=== PATIENT | male | born 1935 | race Caucasian/White ===

== ENCOUNTER → 2016-09-28 | Outpatient (CLI) | payer MEDICARE ==
[2015-05-06 10:12] VITALS: BP 123/56
[~2016-09-28] MED LIST: ALLO300T PO; ASPI-482 PO; CARV3.122 PO; CHOL20003 PO; FURO20TA3 PO; GUAR1PAC2 PO; LISI2.5T PO; OMEG1CAP28 PO; POLY17PO5 PO; REGADENOSON 0.4 MG/5 ML DISP.SYRIN. IV ONE; SIMV80TA3 PO
--- NOTE | 2016-09-28 15:32 | RAD ---
APPROVED REPORT Test Type: Pharmacological Stress Nurse/Tech: Misa Kuo R.N. Test Indications: cad Cardiac History: htn, cad, pacemaker Medications: see ehr Medical History: see ehr Resting ECG: sr Resting Heart Rate: 83 bpm Resting Blood Pressure: 141/70mmHg Pretest Chest Pain: No chest pain Nurse/Tech Notes lungs cta, heart tones regular, good radial pulse Consent: The procedure was explained to the patient in lay terms. Informed consent was witnessed. Antonio eout was entered into [employer]. History and Stress Test performed by Misa Kuo R.N. Pharm. Details Pharmacologic stress testing was performed using 0.4mg per 5ml of regadenoson given intravenously ove r 7-10 seconds. Stress Symptoms No chest pain or symptoms. POST EXERCISE Reason for Termination: Infusion complete Max HR: 89 bpm Max Blood Pressure: 140/76mmHg Chest Pain: No. Arrhythmia: No. ST Change: No. INTERPRETATION Stress EKG Conclusion: Baseline EKG showed sinus rhythm. No ischemic changes at peak stress. No arr hythmias. Imaging Protocol IMAGE PROTOCOL: Rest Tc-99m/stress Tc-99m 1 day Rest: Stress: Viability: Radiopharm.Tc99m PclanhircCo23z Sestamibi Rcjf77dLc 33.1mCi Img Date 09/28/2016 09/28/2016 Inj-Img Xyuo66let. 60min. Rest Admin Site:IV - Left AntecubitalAdministrator:RT Elaina (R)(N) Stress Admin Site: IV - Left AntecubitalAdministrator: RT Elaina (R)(N) STRESS DATA End Diast. Vol.61.0mlAv. Heart Rate89.0bpm End Syst. Vol.19.0mlCO Index BSA0.0L/min Myocardial Kyva536.0gEject. Syiqezhb01.0% Stress Rates Pk. Fill Rate3.58EDV/secLVtime Pk. Fill 162.26msec Pk. Empty Rate4.44ESV/secLVtime Pk. Vxtyj434.27msec 06/21 Pk. Fill0.01EDV/sec Stress Scores Regional WT2.00Summed WT21.00 Regional WM0.00Summed WM6.00 Study quality was good. Left Ventricular size was Normal at Rest and Stress. Lung uptake was Normal. Left Ventricular ejection fraction is 69%. LV Perfusion Stress scintigraphic images showed small fixed defect involving the anteroapical wall consistent with previous myocardial infarction without any significant reversibility. Wall Motion Normal regional wall motion. LV Perf. Quant 17 Seg. SSS2.00 17 Seg. SRS2.00 17 Seg. SDS2.00 Stress Defect Extent (% LAD)3.10Rest Defect Extent (% LAD)13.10Rev. Defect Extent (% LAD)0.00 Stress Defect Extent (% LCX) 10.00Rest Defect Extent (% LCX)0.00Rev. Defect Extent (% LCX)8.80 Stress Defect Extent (% RCA)0.00Rest Defect Extent (% RCA)0.00Rev. Defect Extent (% RCA)0.00 Stress Defect Extent (% SIGRID)2.80Rest Defect Extent (% SIGRID)4.60Rev. Defect Extent (% SIGRID)1.50 Conclusion 1. Regadenoson cardioisotope stress test showed small anteroapical wall infarct without any significa nt ischemia. 2. Normal left ventricular systolic function with ejection fraction calculated at 69%. 3. Low risk for cardiac events.
== END | disposition home or self-care (01) ==
LOC: NM 08:19
PROVIDERS: ATTEND Internal Medicine Cardiovascular Disease
DX: I25.10 Atherosclerotic heart disease of native coronary artery without angina pectoris (principal)
CPT/HCPCS: 78452; 93017; 96374; 96375; 96376; A9500; J2785

== ENCOUNTER → 2016-11-02 | Outpatient (CLI) | payer MEDICARE ==
[2015-05-06 10:12] VITALS: BP 123/56
[~2016-11-02] MED LIST changes: +CONTRAST GIVEN MC PRN; +IOHEXOL 240 MG/ML 50ML VIAL. PO ONE; +IOHEXOL 300 MG/ML 75 ML VIAL IV ONE; +POLY17PO29 PO; -POLY17PO5 PO; -REGADENOSON 0.4 MG/5 ML DISP.SYRIN. IV ONE
--- NOTE | 2016-11-02 10:30 | RAD ---
Examination: CT of the chest abdomen pelvis with IV contrast History: History of follow-up of rectal cancer Comparison: 10/19/2015 Technique: Axial CT images of the chest abdomen is performed with IV contrast. Coronal and sagittal reformats are performed PQRS Compliance Statement: One or more of the following individualized dose reduction techniques were utilized for this examination: 1. Automated exposure control 2. Adjustment of the mA and/or kV according to patient size 3. Use of iterative reconstruction technique Findings: The visualized thyroid gland grossly appears unremarkable. The central airways are patent. Diffuse coronary artery calcifications identified. The heart size grossly appears unremarkable. There is a 7 mm nodule identified in the right upper lobe of the lung grossly similar to prior exam. Linear bibasal lung airspace opacity likely atelectasis and scarring changes are similar to prior exam. Thickening of the bibasal lung pleura with small bilateral pleural effusions with calcified pleural plaques identified in the bilateral lungs are similar to prior exam. The visualized liver, spleen, adrenals grossly appears unremarkable. Multiple gallstones identified within the distended gallbladder. The stomach is mildly distended. The visualized pancreas grossly appears unremarkable. Small bowel is nondilated. Colostomy changes identified in the left lower quadrant of the abdomen. Urinary bladder is mildly distended. Feces and gas noted in the colon. Surgical clips are identified in the region of the prostate likely prostatectomy. The bilateral kidneys enhance symmetrically. Moderate degenerative changes identified in the visualized thoracolumbar spine. Moderate aortic atherosclerosis. No radiologically significant retroperitoneal or pelvic lymphadenopathy identified. Moderate degenerative changes identified in the visualized thoracal lumbar spine. Impression: 1. No evidence of obvious metastatic disease identified. 2. 7 mm nodule in the right upper lobe of the lungs grossly similar to prior exam. 3. 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 2. Left lower quadrant abdomen colostomy changes. 4. Multiple gallstones identified within the distended gallbladder. 5. Changes of prostatectomy.
== END | disposition home or self-care (01) ==
LOC: CT 07:33
PROVIDERS: ATTEND Internal Medicine Hematology & Oncology
DX: C20 Malignant neoplasm of rectum (principal); Z93.3 Colostomy status; K80.20 Calculus of gallbladder without cholecystitis without obstruction; K82.8 Other specified diseases of gallbladder
CPT/HCPCS: 71260; 74177; Q9966

== ENCOUNTER → 2017-10-04 | Outpatient (CLI) | payer MEDICARE | END | disposition home or self-care (01) | LOC: ECHO 10:34 | DX: I25.10 Atherosclerotic heart disease of native coronary artery without angina pectoris (principal); I10 Essential (primary) hypertension; E78.00 Pure hypercholesterolemia, unspecified | CPT/HCPCS: 93306 ==

== ENCOUNTER → 2017-10-26 | Outpatient (CLI) | payer MEDICARE ==
[~2017-10-26] MED LIST changes: -ALLO300T PO; -ASPI-482 PO; -CARV3.122 PO; -CHOL20003 PO; -CONTRAST GIVEN MC PRN; -FURO20TA3 PO; -GUAR1PAC2 PO; +IOHEXOL 240 MG/ML 50ML VIAL. PO; -IOHEXOL 240 MG/ML 50ML VIAL. PO ONE; -IOHEXOL 300 MG/ML 75 ML VIAL IV ONE; -LISI2.5T PO; -OMEG1CAP28 PO; -POLY17PO29 PO; -SIMV80TA3 PO
[2017-10-26] MEDS: IOHEXOL 300 MG/ML 100ML VIAL. IV (08:59)
== END | disposition home or self-care (01) ==
LOC: CT 06:29
DX: C21.8 Malignant neoplasm of overlapping sites of rectum, anus and anal canal (principal); I70.8 Atherosclerosis of other arteries
CPT/HCPCS: 71260; 74177; Q9966; Q9967

== ENCOUNTER → 2018-10-10 | Outpatient (CLI) | payer MEDICARE ==
[2018-01-15 13:15] VITALS: BP 116/59
[~2018-10-10] MED LIST changes: +ALLO300T PO; +ASPI-482 PO; +CARV3.1210 PO; +CHOL20009 PO; +CRESTOR20 MG PO; +FURO20TA3 PO; +GUAR1PAC2 PO; -IOHEXOL 240 MG/ML 50ML VIAL. PO; +LISI2.5T PO; +OMEG1CAP28 PO; +POLY17PO29 PO; +SIMV80TA17 PO
--- NOTE | 2018-10-10 15:37 | CARD ---
MR#: [id number] Date of Study: 10/10/2018 Ordering Physician: WILLIE HEARD, Referring Physician: WILLIE HEARD, Tech: Marlyn Garrido APPROVED REPORT EXAM: Two-dimensional and M-mode echocardiogram with Doppler and color Doppler. Other Information Quality : FairHR: 80bpm Rhythm : PacemakerTechnically limited study due to COPD INDICATION Cardiomyopathy Ischemic Cardiomyopathy Surgery/Intervention Pacemaker: RISK FACTORS Hypertension Hyperlipidemia 2D DIMENSIONS RVDd2.6 (2.9-3.5cm)Left Atrium(2D)3.3 (1.6-4.0cm) IVSd1.0 (0.7-1.1cm)Aortic Root(2D)3.4 (2.0-3.7cm) LVDd4.3 (3.9-5.9cm)LVOT Diameter2.3 (1.8-2.4cm) PWd1.0 (0.7-1.1cm)LVDs2.9 (2.5-4.0cm) FS (%) 33.9 %SV52.8 ml LVEF(%)63.1 (>50%) Aortic Valve AoV Peak Roc.92.9cm/sAoV VTI15.9cm AO Peak GR.3.5mmHgLVOT Peak Roc.75.5cm/s LVOT VTI 14.47cmAO Mean GR.2mmHg DORIAN (VMAX)2.21eu0MQZ (VTI)3.65cm2 Mitral Valve MV E Eznoeolv57.3cm/sMV DECEL EMKV390dx MV A Tyebogcl86.8cm/sMV YYN84dz E/A Ratio0.7MVA (PHT)2.75cm2 TDI E/Lateral E'7.2E/Medial E'8.4 Pulmonary Valve PV Peak Bhmcixas999.0cm/sPV Peak Grad.6mmHg Tricuspid Valve TR P. Upforlkm117xa/sRAP QHZWIKPB9qdYe TR Peak Gr.53pgPtXQEU34nsWx Pulmonary Vein S1 Rncbxluw97.6cm/sD2 Xppsjuwi17.3cm/s PVa qipfptjs465msrf LEFT VENTRICLE The left ventricle is normal size. There is borderline concentric left ventricular hypertrophy. The l eft ventricular systolic function is normal. The Ejection Fraction is 50-55%. There is normal LV segm ental wall motion. Transmitral Doppler flow pattern is Grade I-abnormal relaxation pattern. RIGHT VENTRICLE The right ventricle is normal size. There is normal right ventricular wall thickness. The right ventr icular systolic function is normal. There is a pacemaker lead in the right ventricle. ATRIA The left atrium size is normal. The right atrium size is normal. There is a pacemaker lead seen in th e right atrium. The interatrial septum is intact with no evidence for an atrial septal defect or avitia nt foramen ovale as noted on 2-D or Doppler imaging. AORTIC VALVE The aortic valve is thickened but opens well. Doppler and Color Flow revealed no significant aortic r egurgitation. There is no significant aortic valvular stenosis. MITRAL VALVE The mitral valve is normal in structure and function. There is no evidence of mitral valve prolapse. There is no mitral valve stenosis. Doppler and Color-flow revealed trace mitral regurgitation. TRICUSPID VALVE The tricuspid valve is normal in structure and function. Doppler and Color Flow revealed trace to mil d tricuspid regurgitation with an estimated PAP of 32 mmHg. There is no tricuspid valve stenosis. PULMONIC VALVE The pulmonic valve is not well visualized. Doppler and Color Flow revealed trace to mild pulmonic niles vular regurgitation. GREAT VESSELS The aortic root is normal in size. The IVC was not visualized. PERICARDIAL EFFUSION There is no evidence of significant pericardial effusion. Critical Notification Critical Value: No <Conclusion> The left ventricular systolic function is normal. The Ejection Fraction is 50-55%. There is normal LV segmental wall motion. Transmitral Doppler flow pattern is Grade I-abnormal relaxation pattern. There is a pacemaker lead in the right ventricle. Trace mitral regurgitation. Trace to mild tricuspid regurgitation with an estimated PAP of 32 mmHg. There is no evidence of significant pericardial effusion. Signed by : Willie Heard, Electronically Approved : 10/10/2018 15:36:54
== END | disposition home or self-care (01) ==
LOC: ECHO 12:34
PROVIDERS: ATTEND Internal Medicine Cardiovascular Disease
DX: I08.8 Other rheumatic multiple valve diseases (principal); I25.5 Ischemic cardiomyopathy; I10 Essential (primary) hypertension; E78.5 Hyperlipidemia, unspecified; J44.9 Chronic obstructive pulmonary disease, unspecified; Z95.0 Presence of cardiac pacemaker; Z87.891 Personal history of nicotine dependence
CPT/HCPCS: 93306

== ENCOUNTER → 2019-04-25 | Outpatient (CLI) | payer MEDICARE ==
[2018-01-15 13:15] VITALS: BP 116/59
[~2019-04-25] MED LIST changes: +REGADENOSON 0.4 MG/5 ML DISP.SYRIN. IV ONE
--- NOTE | 2019-04-25 12:20 | RAD ---
MR#: [id number] Date of Study: 04/25/2019 Ordering Physician: WILLIE MOONEY Referring Physician: CLEMENT ZABALA Tech: RT Tricia Delaney) (N) APPROVED REPORT Test Type: Pharmacological Stress Nurse/Tech: Marleny Denise RN Test Indications: CAD Cardiac History: Hypertension,Pacemaker Medications: See Electronic Medical Record Medical History: See Electronic Medical Record Resting ECG: SR Resting Heart Rate: 76 bpm Resting Blood Pressure: 102/58mmHg Pretest Chest Pain: No chest pain Nurse/Tech Notes Dobutamine stress done, patient stated previous bad reaction to Lexiscan medication. S1,S2 and lungs clear to auscultation. Consent: The procedure was explained to the patient in lay terms. Informed consent was witnessed. Antonio eout was entered into [employer] History and Stress Test performed by RT Elaina (Filomena) (N) Pharm. Details Pharmacologic stress testing was performed using Dobutamine with a maximal infusion of 30 mcg/mg/min. Stress Symptoms No chest pain or symptoms. POST EXERCISE Reason for Termination: Reached target heart rate Target HR: Yes Max HR: 120 bpm Max Blood Pressure: 125/64mmHg Blood Pressure response to exercise: Normal blood pressure response during stress. Heart Rate response to exercise: WNL Chest Pain: No. Arrhythmia: Yes. PVC's ST Change: No. INTERPRETATION Stress EKG Conclusion: The resting EKG shows a sinus rhythm, septal Q wave and nonspecific ST-T wave changes. The stress EKG shows no significant changes from baseline. No EKG evidence of stress-induced ischemia. Imaging Protocol IMAGE PROTOCOL: Rest Tc-99m/stress Tc-99m 1 day Rest: Stress: Viability: Radiopharm.Tc99m VovxcnoczZx52g Sestamibi Hbmt20pFv 32.2mCi Duration 15min. 15min. Img Date 04/25/2019 04/25/2019 Inj-Img Hdld57itj. 60min. Rest Admin Site:IV - Right ForearmAdministrator:RT Tricia Delaney)(N) Stress Admin Site: IV - Right ForearmAdministrator: Nati Marshall, RT (R)(N) STRESS DATA End Diast. Vol.40.0mlLVEDV index BSA21.0ml End Syst. Vol.6.0mlLVESV index BSA3.0ml Myocardial Mass90.0gEject. Hfqyzgof88.0% Stress Scores Regional WT2.00Summed WT16.00 Regional WM0.00Summed WM0.00 LV Perfusion The stress scans showed no significant defects. The rest scans showed no significant defects. Nuclear imaging shows no reversible ischemia or infarct. Wall Motion Left ventricular systolic function is normal with no wall motion abnormalities and an ejection fracti on of greater than 70%. LV Perf. Quant 17 Seg. SSS0.00 17 Seg. SRS0.00 17 Seg. SDS0.00 Stress Defect Extent (% LAD)0.00Rest Defect Extent (% LAD)0.00Rev. Defect Extent (% LAD)0.00 Stress Defect Extent (% LCX) 0.00Rest Defect Extent (% LCX)0.00Rev. Defect Extent (% LCX)0.00 Stress Defect Extent (% RCA)0.00Rest Defect Extent (% RCA)0.00Rev. Defect Extent (% RCA)0.00 Stress Defect Extent (% SIGRID)0.00Rest Defect Extent (% SIGRID)0.00Rev. Defect Extent (% SIGRID)0.00 Conclusion 1. No EKG evidence of stressed induced ischemia. 2. Nuclear imaging shows no reversible ischemia or infarct. 3. Normal left ventricular systolic function with an ejection fraction of greater than 70%. 4. Low risk Lexiscan nuclear stress test. Signed by : Rajendra Pruett MD Electronically Approved : 04/25/2019 12:19:38
== END | disposition home or self-care (01) ==
LOC: NM 07:32
PROVIDERS: ATTEND Internal Medicine Cardiovascular Disease
DX: I25.10 Atherosclerotic heart disease of native coronary artery without angina pectoris (principal); I10 Essential (primary) hypertension; Z95.0 Presence of cardiac pacemaker; Z79.01 Long term (current) use of anticoagulants
CPT/HCPCS: 78452; 93017; A9500; J1250

== ENCOUNTER → 2019-08-09 | Outpatient (CLI) | payer MEDICARE ==
[2019-07-08 11:56] VITALS: BP 132/72
[~2019-08-09] MED LIST changes: +CETI10TA16 PO; +DOXY100T PO; +FLUT16SP NS; +GUAI600T47 PO; +IOHEXOL 300 MG/ML 100ML VIAL. IV ONE; +MONT10TA49 PO; +MULT-245 PO; -REGADENOSON 0.4 MG/5 ML DISP.SYRIN. IV ONE
--- NOTE | 2019-08-09 17:22 | KCIC ---
Examination: CT ABDOMEN PELVIS WO/W, CT ANGIOGRAPHY CHEST History: Shortness of breath, rectal cancer Comparison/Correlation: 11/02/2016 and 10/26/2018 CT chest abdomen pelvis with contrast Findings: Axial images of the chest, abdomen, and pelvis were obtained following IV contrast. Sagittal and coronal reformatted images were acquired. Imaging of the chest was performed according to pulmonary arteriography protocol. Maximum intensity projection images were provided. Sternal wires are present. Dual-lead left-sided ICD is present. Pulmonary arterial vasculature is patent with no thromboembolic disease. Borderline main pulmonary arterial diameter is present. Right main pulmonary artery is dilated with diameter of 2.9. Extensive pleural plaques with calcifications are present. Small bilateral pleural effusions are present. No enlarged thoracic lymph nodes are present. Linear atelectasis involving the lower lung medrano noted. No pulmonary nodule or mass lesions. Previously described punctate right upper lobe nodule is not currently seen. Numerous small calculi are present within the gallbladder. Liver and spleen are unremarkable. Pancreas is normal. Adrenal glands are normal. Kidneys unremarkable. Large quantity of stool in the colon noted. Left lower quadrant ostomy is present. Bilateral pelvic sidewall surgical clips are present. No enlarged abdominal or pelvic lymph nodes. Urinary bladder is unremarkable. Prostatectomy clips noted. Bony structures are unremarkable. Impression: No pulmonary arterial thromboembolic disease. Findings are borderline for pulmonary artery hypertension. No pulmonary nodule. Bilateral pleural effusions and extensive calcified plaque involvement of the pleural is unchanged compared to previous exam. Pleural calcifications may relate to asbestos exposure. Cholelithiasis. No evidence of metastatic involvement of the chest, abdomen or pelvis. PQRS Compliance Statement: One or more of the following individualized dose reduction techniques were utilized for this examination: 1. Automated exposure control 2. Adjustment of the mA and/or kV according to patient size 3. Use of iterative reconstruction technique Electronically signed by: Theodore Lu MD (08/09/2019 5:19 PM) [id number]
== END | disposition home or self-care (01) ==
LOC: KCIC CT 09:46
PROVIDERS: ATTEND Internal Medicine
DX: J90 Pleural effusion, not elsewhere classified (principal); J92.9 Pleural plaque without asbestos; K80.20 Calculus of gallbladder without cholecystitis without obstruction; Z85.048 Personal history of other malignant neoplasm of rectum, rectosigmoid junction, and anus
CPT/HCPCS: 71275; 74178; 82565; Q9967

== ENCOUNTER → 2019-08-19 | Outpatient (CLI) | payer MEDICARE ==
[2019-07-08 11:56] VITALS: BP 132/72
[~2019-08-19] MED LIST changes: +ALBUTEROL SULFATE 2.5 MG/3 ML NEBU. NEB ONE; -IOHEXOL 300 MG/ML 100ML VIAL. IV ONE
--- NOTE | 2019-08-20 15:12 | RESP ---
DATE OF SERVICE: 08/19/2019 SPIROMETRY REFERRING PHYSICIAN: Mariama Matute MD The patient's FVC was 1.08 which is 30% of predicted, FEV1 1.05 which is 39% of predicted. The FEV1/FVC ratio was normal. There was no response to bronchodilators. The patient could not do diffusion capacity or total lung capacity. IMPRESSION: 1. Highly suspected severe restrictive lung disease. There was no evidence of obstruction. There were severely reduced flow rates including FVC and FEV1. 2. No response to bronchodilators. 3. Consider doing full PFTs including total lung capacity and diffusion capacity at a future date to confirm restrictive lung disease. MAYRA RAYGOZA MD DR: NUBIA/darien JOB#: [id number] / [id number] KYM
== END | disposition home or self-care (01) ==
LOC: PF 10:47
PROVIDERS: ATTEND Internal Medicine
DX: R06.02 Shortness of breath (principal)
CPT/HCPCS: 94060; 94640; J7613

== ENCOUNTER → 2019-12-12 | Outpatient (CLI) | payer MEDICARE ==
[2019-07-08 11:56] VITALS: BP 132/72
[~2019-12-12] MED LIST changes: -ALBUTEROL SULFATE 2.5 MG/3 ML NEBU. NEB ONE
--- NOTE | 2019-12-12 14:34 | KCIC ---
CT CHEST WO CONTRAST Indication: Pleural effusion, lung nodule, history of rectal cancer Technique: Noncontrast CT imaging was performed of the chest, multiplanar reconstruction images submitted. One or more of the following individualized dose reduction techniques were utilized for this examination: 1. Automated exposure control 2. Adjustment of the mA and/or kV according to patient size 3. Use of iterative reconstruction technique. Comparison: 08/09/2019 Findings: There is again small dependent left pleural effusion. There is again prominent bilateral calcified pleural plaque. There is also pleural thickening greater posteriorly bilaterally overall similar. There again has been a median sternotomy. There is again left electronic cardiac device. There is no pneumothorax or new lobar infiltrate. There is again some linear likely fibrotic change of the lower lobes bilaterally. No new focal pulmonary nodularity is identified. There is severe coronary calcification. Thoracic aortic caliber is within normal limits, scattered plaque present. No new significant chest lymphadenopathy is identified. There is no pericardial fluid. There is extensive cholelithiasis. 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 Thoracic vertebral body stature is maintained. IMPRESSION: 1. Findings are similar to 08/09/2019 exam. There is very small left pleural effusion. There is extensive bilateral calcified pleural plaque, evidence of previous asbestos exposure. 2. There is again severe coronary calcification. 3. There is extensive cholelithiasis. 4. 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 Electronically signed by: Moshe Burrows MD (12/12/2019 2:31 PM) [id number]
== END ==
LOC: KCIC CT 12:47
PROVIDERS: ATTEND Internal Medicine Critical Care Medicine
DX: J90 Pleural effusion, not elsewhere classified (principal); J94.8 Other specified pleural conditions; I25.10 Atherosclerotic heart disease of native coronary artery without angina pectoris; K80.20 Calculus of gallbladder without cholecystitis without obstruction; Z85.048 Personal history of other malignant neoplasm of rectum, rectosigmoid junction, and anus
CPT/HCPCS: 71250

== ENCOUNTER → 2020-01-23 | Outpatient (CLI) | payer MEDICARE ==
[2019-07-08 11:56] VITALS: BP 132/72
== END | disposition home or self-care (01) ==
LOC: LAB 13:24
PROVIDERS: ATTEND Internal Medicine Cardiovascular Disease
DX: Z11.59 Encounter for screening for other viral diseases (principal)
CPT/HCPCS: U0003-CS

== ENCOUNTER 2020-01-27 08:05 | Outpatient (CLI) | payer MEDICARE ==
[~2020-01-27] VITALS: Ht 177.8 cm; Wt 62.6 kg
[2020-01-27] VITALS (11 sets, daily range): BP systolic 93–132; BP diastolic 48–87
[2020-01-27] MEDS ORDERED: BUDE10.2 IH (08:40)
[2020-01-27 09:03] LABS: HEMATOCRIT 45.5 % (39.0-53.0); HEMOGLOBIN 15.4 g/dL (13.0-17.5); RED BLOOD COUNT 5.07 x10^6/uL (4.30-5.70); RED CELL DISTRIBUTION WIDTH 13.5 % (11.5-14.5); WHITE BLOOD COUNT 9.8 x10^3/uL (4.0-11.0)
[2020-01-27] MEDS ORDERED: fentaNYL PF VIAL 100 MCG/2 ML VIAL ONE (09:09)
[2020-01-27] MEDS ORDERED: MIDAZOLAM HCL/PF 2 MG/2 ML VIAL. ONE (09:09)
[2020-01-27] MEDS ORDERED: LIDOCAINE 1% Multi-Dose 20 ML VIAL. ONE (09:10)
[2020-01-27] MEDS ORDERED: IODIXANOL 320 MG/ML 100 ML VIAL. ONE ×2 (09:10→10:13)
[2020-01-27 09:11] LABS: CALCIUM 9.5 mg/dL (8.5-10.1); CREATININE 1.2 mg/dL (0.7-1.3); GFR 57.8; POTASSIUM 4.3 mmol/L (3.5-5.1)
[2020-01-27 09:12] LABS: PROTHROMBIN TIME PATIENT 12.6 SEC (11.7-14.0)
[2020-01-27] MEDS ORDERED: MIDAZOLAM HCL/PF 2 MG/2 ML VIAL. IV ONE (09:15)
[2020-01-27] MEDS ORDERED: fentaNYL PF VIAL 100 MCG/2 ML VIAL IV ONE (09:15)
[2020-01-27] MEDS ORDERED: LIDOCAINE 1% Multi-Dose 20 ML VIAL. INJ ONE (09:15)
[2020-01-27] MEDS ORDERED: IODIXANOL 320 MG/ML 100 ML VIAL. IART ONE (09:15)
[2020-01-27] MEDS ORDERED: CONTRAST GIVEN. MC PRN (09:30)
--- NOTE | 2020-01-27 10:58 | CARD ---
MR#: [id number] Date of Study: 01/27/2020 Ordering Physician: WILLIE MOONEY, Referring Physician: WILLIE MOONEY, Tech: JUANITA HURT RTR APPROVED REPORT Technologist: JUANITA HURT RTR Nurse: SLABADOR OBRIEN RN Procedure(s) performed: Left heart catheterization, selective coronary angiography, selective angiogr aphy of the bypass grafts and left ventriculography MODERATE SEDATION TIME: 40 MINUTES FLUORO TIME: 10.2 MIN DOSE: 591 GYCM2 CONTRAST: 182CC VISI INDICATION The indication(s) include : Ventricular tachycardia in a patient with known history of coronary arter y disease s/p CABG . [facility] Clinical Frailty Scale [facility] Clinical Frailty Scale: Mildly Frail Heart Failure Heart Failure: Yes If Yes, Newly Diagnosed: No If Yes, HF Type: Systolic If Yes, NYHA Class: Class II PROCEDURE NARRATIVE After explaining the risks, benefits and alternative options, informed consent was obtained from sarika ent. Patient was brought to the cardiac [employer] and his right groin was prepped and draped in the u sual fashion. 10 cc of 2% lidocaine was infiltrated into the skin and subcutaneous tissues for local anesthesia. Arterial access was obtained in the right common femoral artery and a 6 Pakistani sheath w as inserted. 6 Pakistani JL4 6 Pakistani JR4 catheters were used to perform selective angiography of the l eft and right coronary arteries. The 6 Pakistani JR4 catheter was then used to perform selective angiog debby of the sequential SVG to D2/OM and also the left internal mammary artery graft to the left anti -descending artery. A 6 Pakistani multipurpose catheter was used to perform selective angiography of th e sequential SVG to RCA/PDA and SVG to D1. Finally, 6 Pakistani pigtail catheter was used to perform le ft ventriculography. Patient tolerated the procedure well. Hemostasis was achieved using Angio-Seal . There were no immediate complications. FINDINGS 1. Hemodynamics: Left ventricular end-diastolic pressure 12 mmHg. No pullback gradient across the a ortic valve. 2. Left ventriculography : Normal left ventricular systolic function with ejection fraction estimate d at 55%. No significant mitral regurgitation seen. 3. Coronary and bypass graft angiography: a. The left main coronary artery arose from the left sinus of Valsalva and showed 100% chronic occlu gary in the midsegment. The left anterior descending and left circumflex arteries were not visualize d and probably chronically occluded proximally. b. The right coronary artery was a dominant vessel arising from the right sinus of Valsalva and show ed 50% calcified stenosis in the proximal segment and two tandem 90% stenosis in the distal segment. c. The left internal mammary artery graft to the left anterior descending artery was patent. Distal to the anastomosis, the left anterior descending artery was small to medium caliber vessel without a ny significant stenosis. d. The saphenous vein graft to the first diagonal branch was patent. e. The sequential saphenous vein graft to the second diagonal branch of LAD and obtuse marginal bran ch of LCx was widely patent. f. The sequential saphenous vein graft to the distal RCA and posterior descending branch was widely patent. Conclusion 1. Severe tribe vessel coronary disease s/p coronary artery bypass surgery with patent STUART to LAD, patent SVG to D1, patent sequential SVG to D2/OM and patent sequential SVG to RCA/PDA. No lesions n eeding intervention were noted. 2. Normal left ventricle systolic function with ejection fraction estimated at 55%. Recommendations We will initiate amiodarone therapy for VT suppression. If he continues to have VT on amiodarone, we will consider EP referral for possible ablation therapy. Signed by : Willie Mooney, Electronically Approved : 01/27/2020 10:57:43
--- NOTE | 2020-01-27 12:25 | NUR ---
pt to seated position, groin site remains clean and dry. SONU RN
--- NOTE | 2020-01-27 13:25 | NUR ---
Discharge Note: ROSA SO Discharge instructions and discharge home medications reviewed with Patient and a copy given. All questions have been answered and understanding verbalized. Groin site remains clean and dry. The following instructions and handouts were given: groin site care, sedation, amiodarone Dr Heard's office to call in RX for Amiodarone. Discontinued lines and drains: Peripheral IV intact. Patient discharged to Home or Self Care with Spouse via Wheelchair SONU RN Addendum: 01/27/20 at 1359 by ZACK NAVARRO RN Amended: Links added.
== END 2020-01-27 13:40 | disposition home or self-care (01) ==
LOC: CCL 08:05
PROVIDERS: ATTEND Internal Medicine Cardiovascular Disease
DX: I47.2 Ventricular tachycardia (principal); I25.10 Atherosclerotic heart disease of native coronary artery without angina pectoris; Z95.1 Presence of aortocoronary bypass graft; Z88.0 Allergy status to penicillin; Z79.82 Long term (current) use of aspirin; Z79.899 Other long term (current) drug therapy; Z87.891 Personal history of nicotine dependence
CPT/HCPCS: 36415; 80048; 85027; 85610; 93459; 99152; 99153; C1760; C1769; C1892; G0269; J1644; J2250; J3010; J3490; Q9967; C1771